=== PATIENT | male | born 1955 | race Caucasian/White ===

== ENCOUNTER → 2019-07-15 08:00 | Day surgery (SDC) | payer MEDICARE, BC ==
[~2019-07-15 08:00] MED LIST: Acetaminophen TAB* 325 MG PO PRN; Heparin 2 UNITS/ML IVPREMIX* 2,000 ML IV ONE; Heparin(*) 1000 UNIT/ML 10 ML VIAL CATH LAB IV ONE; Iohexol 350 (CONTRAST) 200 ML MDV IV ONE; Lidocaine 1% INJ* 10 MG/ML 30 ML SDV ONE; Midazolam* 1 MG/ML 5 ML VIAL (5 MG) ONE; NS 0.9% 1000 ML** 1,000 ML IV SCH; VERAPAMIL 2.5 MG/ML 2 ML VIAL ** 5 mg/2 ml ONE; fentaNYL* 50 MCG/ML 2 ML VIAL (100 MCG VIAL) ONE; nitroGLYCERIN DRIP* 25,000 MCG/250 ML BTL ONE
--- NOTE | 2019-07-15 11:13 | CATH ---
"*[facility]* [place] [address] Main: [phone] [email or web address] Cardiac Catheterization Patient: Piyush Singleton V : 1955 Study Date: 07/15/2019 Age: 64 Gender: M HR: Height: 70 in /177.8 cm BSA: 2.49 m^2 Weight: 266 lb /120.9 kg BMI: 38.2 kg/m^2 Tool Tender: Edil Qureshi MD Ordering Physician: Edil Qureshi MD Referring Physician: Edil Qureshi MD, Titus Montero, --- - Left coronary angiography. - Right coronary angiography. Summary: Normal Coronary Arteries. Recommendations: Continue evaluation for Non-ischemic cardiomyopathy. History: Stable angina. Medications: The patient received antianginal therapy in the last two weeks, including: beta blockers and calcium channel blockers. Labs, prior tests, procedures, and surgery: Stress myocardial perfusion imaging. Abnormal. Moderate risk of ischemia. Blood tests: International normalized ratio (INR) of 0.97. Partial thromboplastin time (PTT) of 33.2 sec. Serum potassium (K) of 4.7 mEq/l. Serum sodium (Na) of 135 mEq/l. Serum creatinine (current admission) of 1.06 mg/dl. Blood urea nitrogen of 15 mg/dl. Glucose of 135 mg/dl. Platelet count of 251 th/ul. White blood cell count (WBC) of 0.01 th/ul. Red blood cell count (RBC) of 4810 th/ul. Hematocrit of 43 %. Hemoglobin (pre-procedure) of 15.1 g/dl. Study data: Study status: Cardiac cath: elective. Location: Catheterization laboratory. Consent: The risks, benefits, and alternatives to the procedure were explained to the patient and/or their healthcare area representative and written informed consent was obtained. All available pre-procedure labs were reviewed. Height: 177.8 cm. 70 in. Weight: 120.9 kg. 266 lb. Body surface area: 2.49 m^2. Body mass index: 38.2 kg/m^2. Procedure: 1. Initial setup. The patient was brought to the laboratory. Surface ECG leads, blood pressure measurements, and pulse oximetric signals were monitored. A baseline seven lead ECG was recorded. A time out was observed per protocol. 2. Skin preparation. The planned puncture sites were prepped and draped in the usual sterile manner. 3. Local anesthesia. 1% lidocaine was administered. 4. Local anesthesia. 1% lidocaine (2 ml) was administered. 5. Right radial artery access. A 6F [place] Slender sheath was advanced into the vessel. 6. Selective left coronary angiography. A 5F TIG 4.0 catheter was advanced into the left coronary vessel ostium under fluoroscopic guidance. Contrast was injected. Images were obtained in multiple projections. 7. Selective right coronary angiography. A 5F TIG 4.0 catheter was advanced into the right coronary vessel ostium under fluoroscopic guidance. Contrast was injected. Images were obtained in multiple projections. 8. Right radial artery hemostasis. Vessel closure was achieved with a Regular Vasc Band device. Hemostasis was successfully obtained. Study completion: Minimal estimated blood loss. All catheters inserted during the procedure were removed. There were no apparent complications. Administered medications: Aspirin, 81mg, PO. (Radial) Nitroglycerin, 300mcg, intra-arterially. (Radial) Verapamil, 3mg, intra-arterially. (Radial) Heparin, 3,000units, intra-arterially. Contrast: Omnipaque 350 30 ml (total dose). Omnipaque 350 170 ml (wasted). Radiation: Fluoroscopy dose: 106.1 cGy. Discharge: The patient tolerated the procedure well and was discharged from the lab in stable condition. Findings Coronary arteries: The coronary circulation is left dominant. Left main: Normal, 0% stenosis. LAD: Normal, 0% stenosis. Left circumflex: Normal, 0% stenosis. Right coronary: Normal, 0% stenosis. Hemodynamics: + + + |Stage description |Condition 1 -| + + + |Arterial pressure s/d (m)|99/63 (78) | + + + Prepared and electronically signed by Edil Qureshi MD 07/15/2019 11:13"
[2019-07-15 13:01] VITALS: BP 113/83
== END | disposition home or self-care (01) ==
LOC: CHICATH 08:00
PROVIDERS: ATTEND Specialist
DX: I20.8 Other forms of angina pectoris (principal); I42.8 Other cardiomyopathies; Z95.0 Presence of cardiac pacemaker; I44.2 Atrioventricular block, complete; R94.31 Abnormal electrocardiogram [ECG] [EKG]
CPT/HCPCS: 93454; J1644; J2250; J3010